=== PATIENT | female | born 1960 | race Caucasian/White ===

== ENCOUNTER 2017-05-16 11:37 | Emergency (ER) | payer OTHER | END 2017-05-16 13:17 | disposition home or self-care (01) | LOC: E/R 11:37 | DX: J02.9 Acute pharyngitis, unspecified (principal) | CPT/HCPCS: 99283; Z7502 ==

== ENCOUNTER 2018-07-04 10:08 | Emergency (ER) | payer OTHER | END 2018-07-04 12:36 | disposition home or self-care (01) | LOC: E/R 10:08 | DX: F41.0 Panic disorder [episodic paroxysmal anxiety] (principal) | CPT/HCPCS: 82962; 93005; 99283-25 ==

== ENCOUNTER 2018-08-18 19:00 | Emergency (ER) | payer OTHER | END 2018-08-18 21:17 | disposition home or self-care (01) | LOC: FTE 19:00 | DX: J31.0 Chronic rhinitis (principal); K12.1 Other forms of stomatitis | CPT/HCPCS: 99282; Z7502 ==